=== PATIENT | female | born 1950 | race Caucasian/White ===

== ENCOUNTER 2019-02-28 17:10 | Emergency (ER) | payer MEDICARE, OTHER ==
[~2019-02-28] VITALS: Ht 157.5 cm; Wt 56.7 kg
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
--- NOTE | 2019-02-28 17:31 | NUR ---
DR KELLY AT BEDSIDE
[2019-02-28] MEDS ORDERED: ACETAMINOPHEN ES 500 MG TABLET ONE (17:51)
[2019-02-28] MEDS ORDERED: ACETAMINOPHEN ES 500 MG TABLET PO ONE (18:00)
--- NOTE | 2019-02-28 19:10 | NUR ---
Patient discharged to home with family in stable condition. Written and verbal after care instructions given. Patient verbalizes understanding of instruction.
[2019-02-28 19:11] VITALS: BP 138/68
== END 2019-02-28 19:11 | disposition home or self-care (01) ==
LOC: ER 17:16
DX: S20.211A Contusion of right front wall of thorax, initial encounter (principal); E11.9 Type 2 diabetes mellitus without complications; V49.59XA Passenger injured in collision with other motor vehicles in traffic accident, initial encounter; Y93.89 Activity, other specified; Y92.413 State road as the place of occurrence of the external cause; Y99.8 Other external cause status
CPT/HCPCS: 71045-TC

== ENCOUNTER 2021-09-12 15:43 | Inpatient (IN) | payer BC, OTHER ==
[~2021-09-12] VITALS: Ht 154.9 cm; Wt 58.1 kg
--- NOTE | 2021-09-12 15:43 | NUR ---
BIBS C/O SHORTNESS OF BREATH, NUMBNESS IN HANDS, FEET SWELLING BILATERALLY x 3DAYS, TO ER BED 16, HOOKED TO MONITOR, CCHANGED TO HOSP GOWN, WARM BLANKET PROVIDED, PATIET AAO x 4. AWAITING MD WILSON
[2021-09-12 17:42] LABS: BASOPHILS % (AUTO) 0.7 % (0.0-2.0); EOSINOPHILS % (AUTO) 0.3 % (0.0-6.0); HEMATOCRIT 41 % (33-45); HEMOGLOBIN 13.6 g/dL (11.5-14.8); LYMPHOCYTES # (AUTO) 1.6 K/uL (0.8-4.8); LYMPHOCYTES % (AUTO) 24.9 % (20.0-44.0); MEAN CORPUSCULAR HGB CONC 33 g/dl (31.0-36.0); MEAN CORPUSCULAR VOLUME 91 fL (82-100); MONOCYTES # (AUTO) 0.4 K/uL (0.1-1.30); MONOCYTES % (AUTO) 5.8 % (2.0-12.0); NEUTROPHILS # (AUTO) 4.5 K/uL (1.8-8.9); NEUTROPHILS % (AUTO) 68.3 % (43.0-81.0); PLATELET COUNT (AUTO) 266 K/uL (150-450); RED BLOOD CELL COUNT(AUTO) 4.48 MIL/uL (4.0-5.2); WHITE BLOOD COUNT (AUTO) 6.5 K/uL (4.3-11.0)
[2021-09-12 17:45] LABS: ALANINE AMINOTRANSFERASE 74 U/L (12-78); ALBUMIN 2.7 g/dL (3.4-5.0); ALKALINE PHOSPHATASE 235 U/L (46-116); ASPARTATE AMINOTRANSFERASE 20 U/L (15-37); BILIRUBIN,DIRECT 0.1 mg/dL (0.0-0.2); BILIRUBIN,TOTAL 0.5 mg/dL (0.2-1.0); CALCIUM, SERUM 8.9 mg/dL (8.5-10.1); CARBON DIOXIDE 29 mmol/L (21-32); CHLORIDE 100 mmol/L (98-107); CREATININE 0.6 mg/dL (0.6-1.3); GLUCOSE 312 mg/dL (74-106); POTASSIUM 4.8 mmol/L (3.5-5.1); SODIUM SERUM 136 mmol/L (136-145); TOTAL PROTEIN, SERUM 6.4 g/dL (6.4-8.2); UREA NITROGEN, BLOOD 14 mg/dL (7-18)
--- NOTE | 2021-09-12 18:21 | NUR ---
[facility] - DR. MCCRACKEN PAGED VIA EXCHANGE
[2021-09-12] MEDS ORDERED: ASPIRIN 81 MG TAB.CHEW PO ONE (18:30)
[2021-09-12] MEDS ORDERED: FUROSEMIDE 40 MG/4 ML VIAL IV ONE (18:30)
[2021-09-12] MEDS ORDERED: ACETAMINOPHEN 325 MG TABLET PO PRN (19:00)
[2021-09-12] MEDS ORDERED: ZOLPIDEM TARTRATE 5 MG TABLET PO PRN (19:00)
[2021-09-12] MEDS ORDERED: ONDANSETRON HCL/PF 4 MG/2 ML VIAL IVP PRN (19:00)
[2021-09-12] MEDS ORDERED: MAGNESIUM HYDROXIDE 30 ML UDC PO PRN (19:00)
[2021-09-12] MEDS ORDERED: MORPHINE SULFATE INJ 2 MG/ML DISP.SYRIN IV PRN (19:00)
[2021-09-12] MEDS ORDERED: HYDROCODONE/APAP 5/325MG TABLET PO PRN (19:00)
[2021-09-12] MEDS ORDERED: MAG HYDROX/AL HYDROX/SIMETH 30 ML UDC PO PRN (19:00)
[2021-09-12] MEDS ORDERED: Z GUARD REMEDY 4 OZ OINT TP PRN (19:00)
[2021-09-12] MEDS ORDERED: FUROSEMIDE 40 MG/4 ML VIAL ONE (19:21)
[2021-09-12] MEDS ORDERED: ASPIRIN 81 MG TAB.CHEW ONE (19:33)
--- NOTE | 2021-09-12 19:40 | NUR ---
RAPID COVID DONE AND SENT TO LAB
[2021-09-12] MEDS ORDERED: DEXTROSE 50%-WATER 50 ML DISP.SYRIN IV PRN (20:00)
--- NOTE | 2021-09-12 20:41 | NUR ---
REPORT GIVEN TO GABRIELA SANDERS
[2021-09-12 20:56] VITALS: BP 121/74
[2021-09-12 21:00] VITALS: BP 121/74
--- NOTE | 2021-09-12 21:01 | NUR ---
PATIENT TRANSFERRED TO [facility] VIA ACLS
[2021-09-12] MEDS: BLOOD SUGAR DIAGNOSTIC 1 EACH STRIP VI SCH (22:00)
[2021-09-12] MEDS: BLOOD SUGAR DIAGNOSTIC 1 EACH STRIP IN SCH (22:36)
[2021-09-12] MEDS: *INSULIN REGULAR(HUMULIN R)HUM 100 UNIT/ML VIAL SQ PRN (22:44)
--- NOTE | 2021-09-12 23:58 | NUR ---
INFORMED RESIDENTIAL PLUMBER CORRIE RE: TROPONIN 382. AND ECHOCARDIOGRAM EF 30%.
[2021-09-13] VITALS: BP 104/63
[2021-09-13 06:24] LABS: BASOPHILS % (AUTO) 0.6 % (0.0-2.0); EOSINOPHILS % (AUTO) 0.9 % (0.0-6.0); HEMATOCRIT 39 % (33-45); LYMPHOCYTES # (AUTO) 1.8 K/uL (0.8-4.8); LYMPHOCYTES % (AUTO) 30.2 % (20.0-44.0); MEAN CORPUSCULAR HGB CONC 34 g/dl (31.0-36.0); MEAN CORPUSCULAR VOLUME 91 fL (82-100); MONOCYTES # (AUTO) 0.4 K/uL (0.1-1.30); MONOCYTES % (AUTO) 6.9 % (2.0-12.0); NEUTROPHILS # (AUTO) 3.7 K/uL (1.8-8.9); NEUTROPHILS % (AUTO) 61.4 % (43.0-81.0); PLATELET COUNT (AUTO) 250 K/uL (150-450); RED BLOOD CELL COUNT(AUTO) 4.25 MIL/uL (4.0-5.2)
[2021-09-13] MEDS: BLOOD SUGAR DIAGNOSTIC 1 EACH STRIP IN SCH ×4 (06:52→22:50)
[2021-09-13] MEDS: INSULIN REGULAR, HUMAN 100 UNIT/ML 3 ML VIAL SQ PRN ×3 (06:54→17:26)
[2021-09-13 07:04] LABS: CALCIUM, SERUM 8.6 mg/dL (8.5-10.1); CREATININE 0.6 mg/dL (0.6-1.3); MAGNESIUM 1.7 mg/dL (1.8-2.4); PHOSPHORUS 3.6 mg/dL (2.5-4.9); POTASSIUM 3.8 mmol/L (3.5-5.1)
[2021-09-13] MEDS: BLOOD SUGAR DIAGNOSTIC 1 EACH STRIP VI SCH ×4 (07:30→22:50)
[2021-09-13 08:00] VITALS: BP 98/57
[2021-09-13 08:20] LABS: THYROID STIMULATING HORMONE 1.782 uIU/mL (0.358-3.74)
[2021-09-13] MEDS ORDERED: FUROSEMIDE 40 MG/4 ML VIAL IV SCH (09:00)
[2021-09-13] MEDS ORDERED: INSULIN GLARGINE, 100 UNIT/ML CARTRIDGE SQ SCH (09:30)
[2021-09-13] MEDS: FUROSEMIDE 40 MG/4 ML VIAL IV SCH ×3 (09:39→16:30)
[2021-09-13] MEDS: PANTOPRAZOLE 40 MG TABLET.DR PO SCH (09:39)
[2021-09-13] MEDS: ASPIRIN 81 MG TAB.CHEW PO SCH (09:40)
[2021-09-13] MEDS: Magnesium 1GM/D5W 100ML PREMIX 100 ML IV SCH ×2 (09:40→11:16)
[2021-09-13] MEDS: POTASSIUM CHLORIDE 20 MEQ TAB.PRT.SR PO SCH ×3 (09:40→13:16)
[2021-09-13 10:33] LABS: ABG BASE EXCESS 1.3 mmol/L; ABG PCO2 36.1 mmHg (35.0-45.0); ABG PH 7.455 (7.350-7.450); ABG PO2 76.4 mmHg (75.0-100.0); COHb 0.7 % (0.5-1.5); MetHb 0.2 % (0.0-1.5); O2Hb 94.1 % (94.0-97.0); SITE, ABG Left Radial; VENT MODE, BG 3 L NC
--- NOTE | 2021-09-13 12:30 | NUR ---
dr. marcano notified of high glucose at lunchtime.no additional insulin ordered and stat bgl done by lab.
[2021-09-13 14:30] VITALS: BP 110/64
--- NOTE | 2021-09-13 15:00 | NUR ---
potassium and mg replacement done.pt.had ct of chest.seen by dr. guerrero and dr. mchugh.
[2021-09-13 15:47] VITALS: BP 88/54
--- NOTE | 2021-09-13 18:07 | NUR ---
bp low after second lasix,88/60.thirdl lasix held.rechecked now and 102/66,heart rate 96.additionally given several glasss of water.
[2021-09-13 20:00] VITALS: BP 104/67
[2021-09-13] MEDS: *INSULIN REGULAR(HUMULIN R)HUM 100 UNIT/ML VIAL SQ PRN (22:52)
[2021-09-14] VITALS: BP 95/55
[2021-09-14] MEDS ORDERED: ENOXAPARIN SODIUM 60 MG/0.6 ML DISP.SYRIN SQ SCH (03:00)
--- NOTE | 2021-09-14 03:00 | NUR ---
LIQUOR BLENDER NOTE PATIENT'S TROPONIN 580, NOTIFIED QUEENIE SCHULER WITH ORDERS FOR LOVENOX 1 MG/KG. LOVENOX 60 MG SQ ORDERED
[2021-09-14] MEDS ORDERED: ENOXAPARIN SODIUM 60 MG/0.6 ML DISP.SYRIN SQ ONE (03:30)
[2021-09-14 04:00] VITALS: BP 93/53
[2021-09-14] MEDS: BLOOD SUGAR DIAGNOSTIC 1 EACH STRIP IN SCH ×4 (07:06→21:58)
[2021-09-14] MEDS: BLOOD SUGAR DIAGNOSTIC 1 EACH STRIP VI SCH ×4 (07:07→21:58)
[2021-09-14] MEDS: INSULIN REGULAR, HUMAN 100 UNIT/ML 3 ML VIAL SQ PRN ×3 (07:08→17:22)
[2021-09-14 07:24] LABS: BASOPHILS % (AUTO) 0.4 % (0.0-2.0); EOSINOPHILS % (AUTO) 1.1 % (0.0-6.0); HEMATOCRIT 41 % (33-45); HEMOGLOBIN 13.5 g/dL (11.5-14.8); LYMPHOCYTES # (AUTO) 1.9 K/uL (0.8-4.8); LYMPHOCYTES % (AUTO) 29.9 % (20.0-44.0); MEAN CORPUSCULAR HGB CONC 33 g/dl (31.0-36.0); MEAN CORPUSCULAR VOLUME 92 fL (82-100); MONOCYTES # (AUTO) 0.5 K/uL (0.1-1.30); NEUTROPHILS # (AUTO) 3.8 K/uL (1.8-8.9); NEUTROPHILS % (AUTO) 60.6 % (43.0-81.0); PLATELET COUNT (AUTO) 236 K/uL (150-450); RED BLOOD CELL COUNT(AUTO) 4.41 MIL/uL (4.0-5.2); WHITE BLOOD COUNT (AUTO) 6.3 K/uL (4.3-11.0)
--- NOTE | 2021-09-14 07:28 | NUR ---
LEADLIGHTER CLOSING NOTE PATIENT SLEEPING IN BED, ALERT/ORIENTED X 4, PATIENT PRIMARILY BELARUSIAN SPEAKING, PT ABLE TO MAKE NEEDS KNOWN. PATIENT STABLE ON 3 LPM OF OXYGEN VIA NASAL CANNULA, NO S/S OF DISTRESS OR SOB NOTED, BREATHING EVEN AND UNLABORED. PATIENT ON TELE MONITOR READING SINUS RHYTHM. PATIENT AMBULATED TO BATHROOM WITH SBA, SOB ON EXERTION. IV ACCESS INTACT AND SALINE LOCKED. MEDICATIONS GIVEN ORDERED, PT NEEDS MET THROUGHOUT SHIFT. SAFETY MEASURES IN PLACE: CALL LIGHT WITHIN REACH, SIDE RAILS UP X 2, BED LOCKED IN LOWEST POSITION, HOB ELEVATED, BED ALARM ON. ENDORSED TO DAY SHIFT NURSE FOR CONTINUITY OF CARE
[2021-09-14 08:00] VITALS: BP 108/57
[2021-09-14 08:09] LABS: ALBUMIN 2.4 g/dL (3.4-5.0); BILIRUBIN,TOTAL 0.4 mg/dL (0.2-1.0); CALCIUM, SERUM 8.7 mg/dL (8.5-10.1); CREATININE 0.8 mg/dL (0.6-1.3); MAGNESIUM 1.7 mg/dL (1.8-2.4); PHOSPHORUS 3.9 mg/dL (2.5-4.9); POTASSIUM 4.2 mmol/L (3.5-5.1); TOTAL PROTEIN, SERUM 6.1 g/dL (6.4-8.2)
[2021-09-14] MEDS: ASPIRIN 81 MG TAB.CHEW PO SCH (08:10)
[2021-09-14] MEDS: PANTOPRAZOLE 40 MG TABLET.DR PO SCH (08:10)
[2021-09-14] MEDS ORDERED: INSULIN GLARGINE, 100 UNIT/ML CARTRIDGE SQ SCH (09:00)
[2021-09-14] MEDS: Magnesium 1GM/D5W 100ML PREMIX 100 ML IV SCH ×2 (09:32→10:52)
[2021-09-14] MEDS: FUROSEMIDE 40 MG/4 ML VIAL IV SCH ×3 (09:32→17:26)
[2021-09-14] MEDS: POTASSIUM CHLORIDE 20 MEQ TAB.PRT.SR PO SCH ×3 (09:33→11:56)
[2021-09-14 12:00] VITALS: BP 115/73
[2021-09-14 16:00] VITALS: BP 99/63
--- NOTE | 2021-09-14 17:44 | NUR ---
ALERT AND ORIENTED X4.FITTED WITH LIFEVEST.GIVEN K-DUR AND LASIX X3.VITAL SIGNS STABLE.
--- NOTE | 2021-09-14 17:45 | NUR ---
ADDITIONALLY HAD 2 GRAMS OF MG REPLACEMENT.
[2021-09-14] MEDS: ENOXAPARIN SODIUM 60 MG/0.6 ML DISP.SYRIN SQ SCH (18:37)
--- NOTE | 2021-09-14 19:35 | NUR ---
RN NOTES RECEIVED PATINET SLEEPING BUT AROUSABLE, LPT. IS WEARING LIFEVEST, SR ON TELE MONITOR HR-92, A/OX4, CENTRAL AFRICAN SPEAKING DENIES PAIN, NO SOB, CALL LIGHT WITHIN REACH, SIDERAILSUPX2, WILL CONTINUE TO MONITOR
[2021-09-14 20:00] VITALS: BP 101/65
[2021-09-14] MEDS: INSULIN GLARGINE, 100 UNIT/ML CARTRIDGE SQ SCH (22:00)
[2021-09-14] MEDS: *INSULIN REGULAR(HUMULIN R)HUM 100 UNIT/ML VIAL SQ PRN (22:02)
[2021-09-15] VITALS (7 sets, daily range): BP systolic 97–117; BP diastolic 62–68
[2021-09-15] MEDS: ENOXAPARIN SODIUM 60 MG/0.6 ML DISP.SYRIN SQ SCH ×2 (06:08→18:00)
[2021-09-15] MEDS: INSULIN REGULAR, HUMAN 100 UNIT/ML 3 ML VIAL SQ PRN ×3 (06:11→17:25)
--- NOTE | 2021-09-15 06:15 | NUR ---
RN NOTES awake, denies pain, no sob, morning care given, pt. needs attended
[2021-09-15 07:22] LABS: BASOPHILS % (AUTO) 0.6 % (0.0-2.0); EOSINOPHILS % (AUTO) 0.9 % (0.0-6.0); HEMATOCRIT 43 % (33-45); HEMOGLOBIN 14.9 g/dL (11.5-14.8); LYMPHOCYTES # (AUTO) 1.8 K/uL (0.8-4.8); LYMPHOCYTES % (AUTO) 28.8 % (20.0-44.0); MEAN CORPUSCULAR HGB CONC 34 g/dl (31.0-36.0); MEAN CORPUSCULAR VOLUME 91 fL (82-100); MONOCYTES # (AUTO) 0.5 K/uL (0.1-1.30); MONOCYTES % (AUTO) 7.2 % (2.0-12.0); NEUTROPHILS % (AUTO) 62.5 % (43.0-81.0); PLATELET COUNT (AUTO) 285 K/uL (150-450); RED BLOOD CELL COUNT(AUTO) 4.76 MIL/uL (4.0-5.2); WHITE BLOOD COUNT (AUTO) 6.4 K/uL (4.3-11.0)
[2021-09-15 07:26] LABS: CALCIUM, SERUM 9.7 mg/dL (8.5-10.1); CREATININE 0.7 mg/dL (0.6-1.3); MAGNESIUM 1.9 mg/dL (1.8-2.4); PHOSPHORUS 4.2 mg/dL (2.5-4.9); POTASSIUM 4.8 mmol/L (3.5-5.1)
[2021-09-15] MEDS: BLOOD SUGAR DIAGNOSTIC 1 EACH STRIP VI SCH ×4 (07:26→21:47)
[2021-09-15] MEDS: BLOOD SUGAR DIAGNOSTIC 1 EACH STRIP IN SCH ×4 (07:26→21:34)
[2021-09-15] MEDS: PANTOPRAZOLE 40 MG TABLET.DR PO SCH (07:29)
--- NOTE | 2021-09-15 07:43 | NUR ---
TRUST ADMINISTRATIVE ASSISTANT NOTES RECEIVED PATIENT IN BED AWAKE. NO PAIN NOTED. NO SOB NOTED. NO DISTRESS NOTED.ON TELE MONITOR. READING SR . IV ACCESS ON THE RIGHT AC # 18 INTACT. ABLE TO MAKE NEEDS KNOWN IN ESTONIAN LANGUAGE. ALERT AND ORIENTED TIMES 4. SAFETY MEASURES IN PLACE. BED LOCKED IN THE LOWEST POSITION. CALL LIGHT AND TABLE IN REACH. WILL CONTINUE TO MONITOR THE PATIENT.
[2021-09-15 07:50] LABS: ALBUMIN 2.7 g/dL (3.4-5.0); BILIRUBIN,TOTAL 0.5 mg/dL (0.2-1.0); TOTAL PROTEIN, SERUM 7.1 g/dL (6.4-8.2)
[2021-09-15] MEDS: ASPIRIN 81 MG TAB.CHEW PO SCH (08:16)
[2021-09-15] MEDS: INSULIN GLARGINE, 100 UNIT/ML CARTRIDGE SQ SCH ×2 (08:19→21:46)
[2021-09-15] MEDS ORDERED: INSULIN GLARGINE, 100 UNIT/ML CARTRIDGE SQ SCH (09:00)
[2021-09-15] MEDS ORDERED: IOHEXOL-350 100 ML VIAL IV ONE (09:15)
[2021-09-15] MEDS ORDERED: IV NS 0.9% 250 ML IV ONE ×2 (09:18→10:39)
[2021-09-15] MEDS ORDERED: CT SWABBABLE VALVE TRANS SET 1 EA INFUS.SET MC ONE (09:18)
[2021-09-15] MEDS ORDERED: METOPROLOL TARTRATE INJ 5 MG/5 ML AMPUL ONE (09:18)
[2021-09-15] MEDS ORDERED: NITROGLYCERIN 0.4 MG/TAB BOTTLE ONE (09:19)
[2021-09-15] MEDS ORDERED: METOPROLOL TARTRATE 50 MG TABLET PO SCH (09:30)
[2021-09-15] MEDS: METOPROLOL TARTRATE 25 MG TABLET PO SCH ×2 (09:54→21:24)
[2021-09-15] MEDS: METOPROLOL TARTRATE INJ 5 MG/5 ML AMPUL IVP PRN ×2 (10:30→10:40)
[2021-09-15] MEDS ORDERED: NITROGLYCERIN 0.4 MG/TAB BOTTLE SL ONE (10:30)
--- NOTE | 2021-09-15 10:56 | NUR ---
CTA PROCEDURE WELL TOLERATED BY THE PT. PT IS AAOX4, NOT IN RESPIRATORY DISTRESS, V/S STABLE, KEPT RESTED AND COMFORTABLE. REPORT GIVEN TO RN FELIPE FOR DEANA. WILL CONTINUE TO MONITOR.
--- NOTE | 2021-09-15 19:30 | NUR ---
CAR LOT ATTENDANT NOTES PATIENT IN BED AWAKE. NO PAIN NOTED. NO SOB NOTED. NO DISTRESS NOTED.ON TELE MONITOR. READING SR . IV ACCESS ON THE RIGHT AC # 18 INTACT. ABLE TO MAKE NEEDS KNOWN IN SOMALI LANGUAGE. ALL DUE MEDS GIVEN ORDERED.ALERT AND ORIENTED TIMES 4. CONSENT FOR TOMORROW SIGNED. NPO SINCE MIDNIGHT. SAFETY MEASURES IN PLACE. BED LOCKED IN THE LOWEST POSITION. CALL LIGHT AND TABLE IN REACH. WILL ENDORSE FOR DEANA.
--- NOTE | 2021-09-15 19:35 | NUR ---
RECOVERY ENGINEER OPENING NOTES RECEIVED PATIENT IN BED; AWAKE, ALERT AND ORIENTED X4. BREATHING IS EVEN AND NONLABORED. WITH O2 INHALATION AT 3LPM VIA NASAL CANNULA; TOLERATING WELL. DENIES ANY PAIN OR DISCOMFORT OF THIS TIME. WITH IV ACCESS ON RIGHT ANTECUBITAL G#18; PATENT, INTACT AND FLUSHES WELL. SAFETY MEASURES IMPLEMENTED: CALL LIGHT AND TABLE WITHIN EASY REACH, SIDE RAILS UP X2, BED IN LOWEST LOCKED POSITION. WILL CONTINUE PLAN OF CARE.
--- NOTE | 2021-09-15 22:00 | NUR ---
AUDIT CLERK NOTES BLOOD SUGAR CHECKED AND RECORDED WITH RESULTS OF 239 MG/DL; 4U OF INSULIN GIVEN SQ ORDERED PER SLIDING SCALE.
[2021-09-15] MEDS: *INSULIN REGULAR(HUMULIN R)HUM 100 UNIT/ML VIAL SQ PRN (22:41)
[2021-09-16] VITALS: BP 104/61
[2021-09-16 00:15] VITALS: BP 104/61
[2021-09-16 04:00] VITALS: BP 102/74
[2021-09-16 04:15] VITALS: BP 102/65
[2021-09-16] MEDS: ENOXAPARIN SODIUM 60 MG/0.6 ML DISP.SYRIN SQ SCH ×2 (06:00→18:17)
[2021-09-16] MEDS: BLOOD SUGAR DIAGNOSTIC 1 EACH STRIP IN SCH ×4 (06:46→21:45)
[2021-09-16] MEDS: BLOOD SUGAR DIAGNOSTIC 1 EACH STRIP VI SCH ×4 (06:47→21:46)
--- NOTE | 2021-09-16 06:50 | NUR ---
PARK INTERPRETER NOTES BLOOD SUGAR CHECKED WITH RESULT OF 124 MG/DL; NO INSULIN COVERAGE GIVEN.
--- NOTE | 2021-09-16 07:10 | NUR ---
CHECKING DEPARTMENT SUPERVISOR CLOSING NOTES PATIENT IS AWAKE, A/O X4. BREATHING IS EVEN AND UNLABORED. NO SOB NOTED. IN NO ACUTE DISTRESS. DENIES ANY PAIN OR DISCOMFORT OF THIS TIME. DUE MEDS GIVEN ORDERED. SAFETY MEASURES IN PLACE. NEEDS ATTENDED. ENDORSED TO NURSE ANI FOR DEANA.
--- NOTE | 2021-09-16 07:30 | NUR ---
FINANCIAL CENTER MANAGER NOTES RECEIVED PATIENT AWAKE IN BED TALKING WITH HER CELL PHONE. NO PAIN NOTED. NO SOB NOTED. NO DISTRESS NOTED.ON TELE MONITOR. READING SR . IV ACCESS ON THE RIGHT AC # 18 INTACT. ABLE TO MAKE NEEDS KNOWN IN AMHARIC LANGUAGE. SHE KNOWS ALSO LITTLE UPPER SORBIAN. ON LIFE VEST , WORKING PROPERLY.ALERT AND ORIENTED TIMES 4. SAFETY MEASURES IN PLACE. BED LOCKED IN THE LOWEST POSITION. CALL LIGHT AND TABLE IN REACH. WILL CONTINUE TO MONITOR THE PATIENT.
[2021-09-16] MEDS: PANTOPRAZOLE 40 MG TABLET.DR PO SCH (08:19)
[2021-09-16 08:23] LABS: BASOPHILS # (AUTO) 0.1 K/uL (0.0-0.2); BASOPHILS % (AUTO) 1.4 % (0.0-2.0); EOSINOPHILS % (AUTO) 1.7 % (0.0-6.0); HEMATOCRIT 41 % (33-45); LYMPHOCYTES # (AUTO) 1.7 K/uL (0.8-4.8); MEAN CORPUSCULAR HGB CONC 34 g/dl (31.0-36.0); MEAN CORPUSCULAR VOLUME 91 fL (82-100); MONOCYTES # (AUTO) 0.4 K/uL (0.1-1.30); MONOCYTES % (AUTO) 7.7 % (2.0-12.0); NEUTROPHILS # (AUTO) 2.7 K/uL (1.8-8.9); NEUTROPHILS % (AUTO) 55.2 % (43.0-81.0); PLATELET COUNT (AUTO) 272 K/uL (150-450); RED BLOOD CELL COUNT(AUTO) 4.53 MIL/uL (4.0-5.2); WHITE BLOOD COUNT (AUTO) 4.9 K/uL (4.3-11.0)
[2021-09-16 08:34] LABS: CALCIUM, SERUM 9.3 mg/dL (8.5-10.1); CREATININE 0.6 mg/dL (0.6-1.3); POTASSIUM 4.1 mmol/L (3.5-5.1)
[2021-09-16] MEDS: METOPROLOL TARTRATE 25 MG TABLET PO SCH ×2 (08:54→21:00)
[2021-09-16] MEDS: ASPIRIN 81 MG TAB.CHEW PO SCH (08:54)
[2021-09-16] MEDS: INSULIN GLARGINE, 100 UNIT/ML CARTRIDGE SQ SCH ×2 (09:00→21:44)
[2021-09-16] MEDS ORDERED: HEPARIN INFUSION/D5W 0 ML IV ONE (12:17)
[2021-09-16] MEDS ORDERED: NITROGLYCERIN IN 5 % DEXTROSE 250 ML IV ONE (12:18)
[2021-09-16] MEDS ORDERED: IODIXANOL 320MG/ML 100 ML IV ONE (12:19)
[2021-09-16] MEDS ORDERED: IV SET PRIMARY PUMP SET 1 EA INFUS.SET MC ONE (12:20)
[2021-09-16] MEDS ORDERED: IV NS 0.9% 1,000 ML ONE (12:20)
[2021-09-16] MEDS ORDERED: LIDOCAINE 2% 50 ML MDV IJ ONE (12:25)
[2021-09-16] MEDS ORDERED: LIDOCAINE HCL/PF 1% 30 ML SDV ONE (12:26)
[2021-09-16] MEDS ORDERED: FENTANYL PF 100MCG/2ML AMPUL ONE (13:03)
[2021-09-16] MEDS ORDERED: MIDAZOLAM HCL 2 MG/2ML VIAL ONE (13:03)
[2021-09-16] MEDS ORDERED: HEPARIN SODIUM, PORCINE 1,000 UNIT/ML VIAL ONE (13:50)
--- NOTE | 2021-09-16 15:53 | NUR ---
RN NOTES BACK FROM CAT LAB AT 1415. IN STABLE CONDITION. NO BLEEDING NOTED. NO SOB NOTED. NO DISTRESS NOTED.
--- NOTE | 2021-09-16 19:20 | NUR ---
INSTRUCTOR DECORATING OPENING NOTES RECEIVED PATIENT IN BED; AWAKE, ALERT AND ORIENTED X4. WITH O2 INHALATION AT 3LPM VIA NASAL CANNULA; WELL TOLERATED. BREATHING EVENLY AND NONLABORED. DENIES ANY PAIN OR DISCOMFORT OF THIS TIME. WITH IV ACCESS ON RIGHT ANTECUBITAL G#18; PATENT, INTACT AND FLUSHES WELL. SAFETY MEASURES IMPLEMENTED: CALL BUTTON AND TABLE WITHIN EASY REACH, SIDE RAILS UP X2, BED IN LOWEST LOCKED POSITION. WILL CONTINUE PLAN OF CARE.
--- NOTE | 2021-09-16 19:30 | NUR ---
WELDING SUPERVISOR NOTES PATIENT AWAKE IN BED TALKING WITH HER CELL PHONE. NO PAIN NOTED. NO SOB NOTED. NO DISTRESS NOTED.ON TELE MONITOR. READING SR . IV ACCESS ON THE RIGHT AC # 18 INTACT. ABLE TO MAKE NEEDS KNOWN IN AZERBAIJANI LANGUAGE. SHE KNOWS ALSO LITTLE AMHARIC. ON LIFE VEST , WORKING PROPERLY.ALL DUE MEDS AND TREATMENTS GIVEN ORDERED. S/P OF THE CARDIAC CATHETERIZATION. FROM THE RIGHT WRIST SIDE. NO BLEEDING NOTED.ALERT AND ORIENTED TIMES 4. SAFETY MEASURES IN PLACE. BED LOCKED IN THE LOWEST POSITION. CALL LIGHT AND TABLE IN REACH. WILL ENDORSE FOR DEANA.
[2021-09-16 20:00] VITALS: BP 96/51
[2021-09-16 20:05] VITALS: BP 96/51
[2021-09-16] MEDS: *INSULIN REGULAR(HUMULIN R)HUM 100 UNIT/ML VIAL SQ PRN (21:51)
[2021-09-17] VITALS (8 sets, daily range): BP systolic 94–109; BP diastolic 48–68
--- NOTE | 2021-09-17 07:05 | NUR ---
SCHOOL OPERATIONS MANAGER CLOSING NOTES PATIENT IS AWAKE, A/O X4. BREATHING IS EVEN AND UNLABORED. NO SOB NOTED. IN NO ACUTE DISTRESS. DENIES ANY PAIN OR DISCOMFORT OF THIS TIME. DUE MEDS GIVEN ORDERED. SAFETY MEASURES IN PLACE. NEEDS ATTENDED. ENDORSED TO NURSE MELGOZA FOR DEANA.
[2021-09-17] MEDS: BLOOD SUGAR DIAGNOSTIC 1 EACH STRIP IN SCH ×4 (07:11→21:39)
[2021-09-17] MEDS: BLOOD SUGAR DIAGNOSTIC 1 EACH STRIP VI SCH ×4 (07:11→21:39)
[2021-09-17] MEDS: ENOXAPARIN SODIUM 60 MG/0.6 ML DISP.SYRIN SQ SCH ×2 (07:16→17:28)
[2021-09-17] MEDS: INSULIN REGULAR, HUMAN 100 UNIT/ML 3 ML VIAL SQ PRN ×3 (07:20→17:16)
--- NOTE | 2021-09-17 07:50 | NUR ---
ADMINISTRATIVE NURSING SUPERVISOR OPENING NOTE Patient in bed, awake. A/O x 4. On O2 at 3 PM via NC, breathing evenly and unlabored. No SOB or s/s of distress noted. IV access on RAC #18 SL, intact and patent. On tele monitoring showing SR, HR on the 80's. Patient wearing life vest. Safety precautions in place: bed in low, locked position; siderails up x 2; call light within reach. Will continue to monitor.
[2021-09-17] MEDS: ASPIRIN 81 MG TAB.CHEW PO SCH (08:43)
[2021-09-17] MEDS: PANTOPRAZOLE 40 MG TABLET.DR PO SCH (08:43)
[2021-09-17] MEDS: METOPROLOL TARTRATE 25 MG TABLET PO SCH ×2 (08:44→21:00)
[2021-09-17] MEDS: INSULIN GLARGINE, 100 UNIT/ML CARTRIDGE SQ SCH ×2 (09:43→21:00)
--- NOTE | 2021-09-17 18:59 | NUR ---
VISUAL EDUCATOR CLOSING NOTE Patient in bed, awake. A/O x 4, able to make needs known. On O2 at 2L PM via NC, breathing evenly and unlabored. No SOB or s/s of distress noted. IV access on RAC #18 SL, intact and patent. All needs attended to. Due meds given. Patient wearing life vest. Safety precautions maintained: bed in low, locked position; siderails up x 2; call light within reach. Will endorse to ethanol quality leader nurse for DEANA. Addendum: 09/17/21 at 1925 by NILESH ROWE RN CORRECTION: MS RN CLOSING NOTE
--- NOTE | 2021-09-17 21:30 | NUR ---
MS RN OPENING NOTE PATIENT AWAKE IN BED, ALERT/ORIENTED X 4, PATIENT PRIMARILY GREENLANDIC SPEAKING, PT ABLE TO MAKE NEEDS KNOWN. PATIENT STABLE ON 2 LPM OF OXYGEN VIA NASAL CANNULA, NO S/S OF DISTRESS OR SOB NOTED, BREATHING EVEN AND UNLABORED. IV ACCESS ON RAC #18G INTACT AND SALINE LOCKED. PATIENT WEARING LIFE VEST. PATIENT ABLE TO AMBULATE TO BATHROOM WITH SBA. SAFETY MEASURES IN PLACE: CALL LIGHT WITHIN REACH, SIDE RAILS UP X 2, BED LOCKED IN LOWEST POSITION, HOB ELEVATED, BED ALARM ON. WILL CONTINUE PLAN OF CARE
[2021-09-17] MEDS: *INSULIN REGULAR(HUMULIN R)HUM 100 UNIT/ML VIAL SQ PRN (21:40)
[2021-09-18] MEDS: INSULIN REGULAR, HUMAN 100 UNIT/ML 3 ML VIAL SQ PRN ×3 (06:22→17:25)
[2021-09-18] MEDS: ENOXAPARIN SODIUM 60 MG/0.6 ML DISP.SYRIN SQ SCH ×2 (06:23→17:26)
[2021-09-18] MEDS: BLOOD SUGAR DIAGNOSTIC 1 EACH STRIP VI SCH ×4 (06:53→22:22)
[2021-09-18] MEDS: BLOOD SUGAR DIAGNOSTIC 1 EACH STRIP IN SCH ×4 (06:53→21:49)
--- NOTE | 2021-09-18 06:55 | NUR ---
MS RN CLOSING NOTE PATIENT SLEEPING IN BED, ALERT/ORIENTED X 4, PATIENT PRIMARILY SETSWANA SPEAKING, PT ABLE TO MAKE NEEDS KNOWN. PATIENT STABLE ON 2 LPM OF OXYGEN VIA NASAL CANNULA, NO S/S OF DISTRESS OR SOB NOTED, BREATHING EVEN AND UNLABORED. IV ACCESS ON RAC #18G INTACT AND SALINE LOCKED. PATIENT WORE LIFE VEST ALL SHIFT. MEDICATIONS GIVEN ORDERED, PT NEEDS MET THROUGHOUT SHIFT, NO SIGNIFICANT CHANGES THROUGHOUT SHIFT. PATIENT ABLE TO AMBULATE TO BATHROOM WITH SBA. SAFETY MEASURES IN PLACE: CALL LIGHT WITHIN REACH, SIDE RAILS UP X 2, BED LOCKED IN LOWEST POSITION, HOB ELEVATED, BED ALARM ON. WILL ENDORSE TO DAY SHIFT NURSE FOR CONTINUITY OF CARE
--- NOTE | 2021-09-18 07:10 | NUR ---
TREATMENT COORDINATOR OPENING NOTES RECEIVED PATIENT IN BED; AWAKE, ALERT AND ORIENTED X4. WITH O2 INHALATION AT 2LPM VIA NASAL CANULA; WELL TOLERATED. BREATHING EVENLY AND NONLABORED. DENIES ANY PAIN OR DISCOMFORT OF THIS TIME. WITH IV ACCESS ON RIGHT ANTECUBITAL G#18; PATENT, INTACT AND FLUSHES WELL. ON LIFE VEST WORN ORDERED. SAFETY MEASURES IMPLEMENTED: CALL BUTTON AND TABLE WITHIN EASY REACH, SIDE RAILS UP X2, BED IN LOWEST LOCKED POSITION. COMFORT MEASURES PROVIDED.
[2021-09-18 07:18] LABS: BASOPHILS % (AUTO) 0.6 % (0.0-2.0); EOSINOPHILS % (AUTO) 2.5 % (0.0-6.0); HEMATOCRIT 38 % (33-45); HEMOGLOBIN 13.1 g/dL (11.5-14.8); LYMPHOCYTES # (AUTO) 1.6 K/uL (0.8-4.8); LYMPHOCYTES % (AUTO) 32.7 % (20.0-44.0); MEAN CORPUSCULAR HGB CONC 35 g/dl (31.0-36.0); MEAN CORPUSCULAR VOLUME 91 fL (82-100); MONOCYTES # (AUTO) 0.4 K/uL (0.1-1.30); MONOCYTES % (AUTO) 7.4 % (2.0-12.0); NEUTROPHILS # (AUTO) 2.8 K/uL (1.8-8.9); NEUTROPHILS % (AUTO) 56.8 % (43.0-81.0); PLATELET COUNT (AUTO) 267 K/uL (150-450); RED BLOOD CELL COUNT(AUTO) 4.18 MIL/uL (4.0-5.2)
[2021-09-18 07:27] LABS: ALBUMIN 2.3 g/dL (3.4-5.0); BILIRUBIN,TOTAL 0.2 mg/dL (0.2-1.0); CALCIUM, SERUM 8.8 mg/dL (8.5-10.1); CREATININE 0.6 mg/dL (0.6-1.3); MAGNESIUM 1.7 mg/dL (1.8-2.4); PHOSPHORUS 3.8 mg/dL (2.5-4.9); POTASSIUM 4.2 mmol/L (3.5-5.1); TOTAL PROTEIN, SERUM 6.1 g/dL (6.4-8.2)
[2021-09-18 08:30] VITALS: BP 103/66
[2021-09-18] MEDS: PANTOPRAZOLE 40 MG TABLET.DR PO SCH (08:55)
[2021-09-18] MEDS: METOPROLOL TARTRATE 25 MG TABLET PO SCH ×2 (08:56→21:00)
[2021-09-18] MEDS: ASPIRIN 81 MG TAB.CHEW PO SCH (08:56)
[2021-09-18] MEDS: INSULIN GLARGINE, 100 UNIT/ML CARTRIDGE SQ SCH ×2 (09:11→21:00)
--- NOTE | 2021-09-18 11:30 | NUR ---
MANAGING CONSULTANT CLINICAL PROFESSOR NOTE SEEN BY DR. RAYMOND
[2021-09-18] MEDS ORDERED: MAGNESIUM OXIDE 400 MG TABLET PO ONE (13:30)
--- NOTE | 2021-09-18 15:30 | NUR ---
EDITORIAL INTERN NOTE PER MARCUS ZAMORA, PATIENT WILL HAVE PCI AT [facility] ON SUNDAY AND NOT ON SUNDAY.
[2021-09-18 16:09] VITALS: BP 96/53
--- NOTE | 2021-09-18 19:00 | NUR ---
COLLECTION TELLER CLOSING NOTES PATIENT IN BED; AWAKE, ALERT AND ORIENTED X4. WITH O2 INHALATION AT 2LPM VIA NASAL CANULA; WELL TOLERATED. BREATHING EVENLY AND NONLABORED. DENIES ANY PAIN OR DISCOMFORT OF THIS TIME. WITH IV ACCESS ON RIGHT ANTECUBITAL G#18; PATENT, INTACT AND FLUSHES WELL. ON LIFE VEST WORN ORDERED. SAFETY MEASURES IMPLEMENTED: CALL BUTTON AND TABLE WITHIN EASY REACH, SIDE RAILS UP X2, BED IN LOWEST LOCKED POSITION. COMFORT MEASURES PROVIDED. ENDORSED TO NEXT SHIFT FOR CONTINUITY OF CARE.
--- NOTE | 2021-09-18 19:41 | NUR ---
SKI TECHNICIAN OPENING NOTES RECEIVED PATIENT IN BED; AWAKE, ALERT AND ORIENTED X4. WITH O2 INHALATION AT 2LPM VIA NASAL CANULA; WELL TOLERATED.NO SIGN SOB/DISTRESS NOTED. BREATHING EVENLY AND NONLABORED. DENIES ANY PAIN OR DISCOMFORT OF THIS TIME. WITH IV ACCESS ON RIGHT ANTECUBITAL G#18; PATENT, INTACT AND FLUSHES WELL. ON LIFE VEST WORN ORDERED. SAFETY MEASURES IMPLEMENTED: CALL BUTTON AND TABLE WITHIN EASY REACH, SIDE RAILS UP X2, BED IN LOWEST LOCKED POSITION. COMFORT MEASURES PROVIDED.
[2021-09-18 20:00] VITALS: BP 107/56
[2021-09-19] MEDS: ENOXAPARIN SODIUM 60 MG/0.6 ML DISP.SYRIN SQ SCH ×2 (05:42→17:25)
[2021-09-19] MEDS: BLOOD SUGAR DIAGNOSTIC 1 EACH STRIP IN SCH ×4 (06:48→21:33)
[2021-09-19] MEDS: BLOOD SUGAR DIAGNOSTIC 1 EACH STRIP VI SCH ×4 (06:57→21:33)
--- NOTE | 2021-09-19 07:30 | NUR ---
PT RECEIVED RESTING COMFORTABLY IN BED. NO S/S OR C/O PAIN OR DISTRESS NOTED. SIDE RAILS UP X2, CALL LIGHT LEFT WITHIN REACH. WILL CONTINUE PLAN OF CARE.
[2021-09-19 08:00] VITALS: BP 100/64
[2021-09-19] MEDS: INSULIN GLARGINE, 100 UNIT/ML CARTRIDGE SQ SCH ×2 (08:32→21:00)
[2021-09-19] MEDS: METOPROLOL TARTRATE 25 MG TABLET PO SCH ×2 (08:35→20:59)
[2021-09-19] MEDS: ASPIRIN 81 MG TAB.CHEW PO SCH (08:36)
[2021-09-19] MEDS: PANTOPRAZOLE 40 MG TABLET.DR PO SCH (08:36)
[2021-09-19] MEDS: INSULIN REGULAR, HUMAN 100 UNIT/ML 3 ML VIAL SQ PRN ×2 (12:04→17:27)
[2021-09-19 16:57] VITALS: BP 105/58
--- NOTE | 2021-09-19 18:36 | NUR ---
CHANGE OF SHIFT REPORT PT RESTING COMFORTABLY IN BED. NO S/S OR C/O PAIN OR DISTRESS NOTED. SIDE RAILS UP X2, CALL LIGHT LEFT WITHIN REACH. PT KEPT CLEAN, DRY, AND COMFORTABLE. NO SIGNIFICANT CHANGES SINCE PREVIOUS SHIFT. WILL GIVE REPORT TO GEORGE OCHOA.
--- NOTE | 2021-09-19 19:41 | NUR ---
STAFF ASSISTANT OPENING NOTES PATIENT IN BED; AWAKE, ALERT AND ORIENTED X4. WITH O2 AT 2LPM VIA NASAL CANULA; WELL TOLERATED. BREATHING EVENLY AND NONLABORED. DENIES ANY PAIN OR DISCOMFORT OF THIS TIME. WITH IV ACCESS ON RIGHT ANTECUBITAL G#18; PATENT, INTACT AND FLUSHES WELL. ON LIFE VEST WORN ORDERED. SAFETY MEASURES IMPLEMENTED: CALL BUTTON AND TABLE WITHIN EASY REACH, SIDE RAILS UP X2, BED IN LOWEST LOCKED POSITION. COMFORT MEASURES PROVIDED. WILL CONTINUE TO MONITOR.
[2021-09-19 20:00] VITALS: BP 108/58
[2021-09-19] MEDS: *INSULIN REGULAR(HUMULIN R)HUM 100 UNIT/ML VIAL SQ PRN (21:37)
[2021-09-20] MEDS: ENOXAPARIN SODIUM 60 MG/0.6 ML DISP.SYRIN SQ SCH (06:00)
--- NOTE | 2021-09-20 06:12 | NUR ---
FILER HELPER NOTES PER SYSTEM INTEGRATION ENGINEER GANGA TORRES TO [facility] LOVENOX DOSE PT WILL HAVE SX TODAY.
[2021-09-20 06:34] LABS: BASOPHILS % (AUTO) 0.9 % (0.0-2.0); EOSINOPHILS % (AUTO) 3.8 % (0.0-6.0); HEMATOCRIT 38 % (33-45); HEMOGLOBIN 12.9 g/dL (11.5-14.8); LYMPHOCYTES # (AUTO) 1.3 K/uL (0.8-4.8); LYMPHOCYTES % (AUTO) 30.6 % (20.0-44.0); MEAN CORPUSCULAR HGB CONC 34 g/dl (31.0-36.0); MEAN CORPUSCULAR VOLUME 90 fL (82-100); MONOCYTES # (AUTO) 0.4 K/uL (0.1-1.30); MONOCYTES % (AUTO) 8.3 % (2.0-12.0); NEUTROPHILS # (AUTO) 2.5 K/uL (1.8-8.9); NEUTROPHILS % (AUTO) 56.4 % (43.0-81.0); PLATELET COUNT (AUTO) 275 K/uL (150-450); RED BLOOD CELL COUNT(AUTO) 4.18 MIL/uL (4.0-5.2); WHITE BLOOD COUNT (AUTO) 4.4 K/uL (4.3-11.0)
[2021-09-20] MEDS: BLOOD SUGAR DIAGNOSTIC 1 EACH STRIP IN SCH ×2 (06:36→12:17)
[2021-09-20] MEDS: INSULIN REGULAR, HUMAN 100 UNIT/ML 3 ML VIAL SQ PRN (06:37)
[2021-09-20] MEDS: BLOOD SUGAR DIAGNOSTIC 1 EACH STRIP VI SCH ×2 (06:37→12:17)
--- NOTE | 2021-09-20 06:38 | NUR ---
MOUNTER CLOSING NOTES PATIENT IN BED; AWAKE, ALERT AND ORIENTED X4. WITH O2 AT 2LPM VIA NASAL CANULA; WELL TOLERATED. BREATHING EVENLY AND NONLABORED. DENIES ANY PAIN OR DISCOMFORT OF THIS TIME. WITH IV ACCESS ON RIGHT ANTECUBITAL G#18; PATENT, INTACT AND FLUSHES WELL. ON LIFE VEST WORN ORDERED. SAFETY MEASURES IMPLEMENTED: CALL BUTTON AND TABLE WITHIN EASY REACH, SIDE RAILS UP X2, BED IN LOWEST LOCKED POSITION. COMFORT MEASURES PROVIDED. WILL ENDORSE CARE TO DAY SHIFT NURSE.
[2021-09-20 07:24] LABS: CALCIUM, SERUM 8.7 mg/dL (8.5-10.1); CREATININE 0.6 mg/dL (0.6-1.3); MAGNESIUM 1.7 mg/dL (1.8-2.4); PHOSPHORUS 3.8 mg/dL (2.5-4.9); POTASSIUM 4.2 mmol/L (3.5-5.1)
[2021-09-20] MEDS: PANTOPRAZOLE 40 MG TABLET.DR PO SCH (07:30)
[2021-09-20 08:00] VITALS: BP 100/66
--- NOTE | 2021-09-20 08:22 | NUR ---
MS RN OPENING NOTES PATIENT IN BED; AWAKE, ALERT AND ORIENTED X4. WITH PRN O2 AT 2 LPM VIA NASAL CANULA FOR COMFORT; WELL TOLERATED. BREATHING EVENLY AND NONLABORED. DENIES ANY PAIN OR DISCOMFORT AT THIS TIME. WITH IV ACCESS ON RAC G#18; PATENT, INTACT AND FLUSHES WELL. LIFE VEST WORN ORDERED. SAFETY MEASURES IMPLEMENTED: CALL BUTTON AND TABLE WITHIN EASY REACH, SIDE RAILS UP X2, BED IN LOWEST LOCKED POSITION. COMFORT MEASURES PROVIDED. WILL CONTINUE TO MONITOR PATIENT
[2021-09-20 08:31] VITALS: BP 100/66
[2021-09-20] MEDS: METOPROLOL TARTRATE 25 MG TABLET PO SCH (08:31)
[2021-09-20] MEDS: ASPIRIN 81 MG TAB.CHEW PO SCH (08:31)
[2021-09-20] MEDS: INSULIN GLARGINE, 100 UNIT/ML CARTRIDGE SQ SCH (08:31)
[2021-09-20] MEDS: Magnesium 1GM/D5W 100ML PREMIX 100 ML IV SCH ×2 (09:02→11:10)
--- NOTE | 2021-09-20 13:24 | NUR ---
MS COMMERCIAL LENDING VICE PRESIDENT NOTE PATIENT DISCHARGED AND TRANSFERRED BY AMBULANCE TO A HIGHER LEVEL OF ACUITY CARE ([facility]). MEDICALLY STABLE CONDITION DURING DISCHARGE. PATIENT A/O X4, ABLE TO MAKE NEED KNOWN. ALL DISCHARGE PAPERWORK READY AND PHYSICIAN DISCHARGE INSTRUCTIONS PROVIDED TO PATIENT; PATIENT VERBALIZED UNDERSTANDING. BELONGINGS ACCOUNTED FOR AND FORM SIGNED WELL. LIFE VEST ACCOUNTED FOR AND LEFT WITH THE PATIENT. blasting contract miner MADE AWARE OF THE LIFE VEST. TRANSFER REPORT READY AND REPORT GIVEN TO ROOFING TILE SORTER NURSE AT [facility]. PATIENT LEFT HE UNIT ACCOMPANIED BY 2 blasting contract miner AND LEFT THE HOSPITAL VIA [facility] AMBUL[facility].
== END 2021-09-20 13:30 | disposition short-term general hospital (02) | DRG 280 ==
LOC: ER 15:55 → TELE 20:17 → MED 09-17 15:53
PROVIDERS: ADMIT Student in an Organized Health Care Education/Training Program; ATTEND Internal Medicine
PROC: 4A023N7 Measurement of Cardiac Sampling and Pressure, Left Heart, Percutaneous Approach (ICD-10-PCS; principal; 2021-09-16)
PROC: B211YZZ Fluoroscopy of Multiple Coronary Arteries using Other Contrast (ICD-10-PCS; 2021-09-16)
DX: I21.4 Non-ST elevation (NSTEMI) myocardial infarction (principal); I50.41 Acute combined systolic (congestive) and diastolic (congestive) heart failure; E44.0 Moderate protein-calorie malnutrition; I42.9 Cardiomyopathy, unspecified; J90 Pleural effusion, not elsewhere classified; I25.10 Atherosclerotic heart disease of native coronary artery without angina pectoris; Z20.822 Contact with and (suspected) exposure to COVID-19; E11.65 Type 2 diabetes mellitus with hyperglycemia; E88.09 Other disorders of plasma-protein metabolism, not elsewhere classified; I27.20 Pulmonary hypertension, unspecified
CPT/HCPCS: 36415; 36600; 71045-TC; 71250-TC; 75574; 80048-TC; 80053-TC; 80076-TC; 82803-TC; 82947-TC; 82962-TC; 83735-TC; 83880; 84100-TC; 84439-TC; 84443-TC; 84484-TC; 85025-TC; 85610-TC; 87081-TC; 93307-TC; 94799-TC; C1887; G0378; G0500; J1644; J1650; J1815; J1940; J2250; J3010; J3475; J3490; J7030; J7050; Q9967